=== PATIENT | female | born 1940 | race Caucasian/White ===

== ENCOUNTER 2017-05-16 06:32 | Day surgery (SDC) | payer MEDICARE, MEDICAID ==
[2017-05-12 12:41] LABS: Basophils # (auto) 0.1 uL; Basophils % (auto) 1.3 % (0.0-2.0); Eosinophils # (auto) 0.2 uL; Eosinophils % (auto) 3.5 % (0.0-7.0); Hematocrit 45.5 % (36.0-46.0); Hemoglobin 15.1 g/dL (12.2-16.2); Lymphocytes # (auto) 1.9 uL; Lymphocytes % (auto) 27.2 % (10.0-50.0); Mean Corpuscular Hemoglobin 28.7 pg (28.0-32.0); Mean Corpuscular Hgb Conc. 33.1 g/dL (32.0-36.0); Mean Corpuscular Volume 86.8 fL (80.0-100.0); Monocytes # (auto) 0.5 uL; Monocytes % (auto) 7.9 % (0.0-12.0); Neutrophils # (auto) 4.2 uL; Neutrophils % (auto) 60.1 % (37.0-80.0); Nucleated Red Blood Cells % 0.1 %; Platelet Count (auto) 255 10^3/uL (140-450); Red Blood Cells 5.24 10^6/uL (4.0-5.20); Red Cell Distribution Width 13.3 % (11.8-14.3)
[2017-05-12 12:52] LABS: INR 0.93 (0.9-1.15); Partial Thromboplastin Time 22.6 sec (22.64-33.71); Prothrombin Time 10.1 sec (9.37-12.3)
[2017-05-12 12:53] LABS: Albumin 3.8 g/dL (3.4-5.0); BUN/Creatinine Ratio 15.4; Calcium 9.3 mg/dL (8.5-10.1); Potassium 4.2 mmol/L (3.5-5.1)
[2017-05-12 12:55] LABS: Urine Bacteria MOD /hpf (None Seen); Urine Blood Negative /uL (Negative); Urine Mucus FEW (None Seen); Urine WBC 133 /hpf (0 - 5)
[2017-05-12 12:57] LABS: Bilirubin, Total 0.7 mg/dL (0.2-1.0); Total Protein 7.6 g/dL (6.4-8.2)
[~2017-05-16] VITALS: Ht 154.9 cm; Wt 73.0 kg
[~2017-05-16 06:32] MED LIST: ALBU2TAB4 PO; ALBUAER3 IN; GABA-339 PO; METF-370 PO; NITR400A5 TL; PAR20T PO; TRAM50TA2 PO
[2017-05-16] MEDS ORDERED: CLINDAMYCIN 600MG IV 50 ML IV ONE (06:51)
[2017-05-16] MEDS ORDERED: BACITRACIN INJ 50000 UNIT VIAL ONE (07:20)
[2017-05-16] MEDS ORDERED: ROPIVACAINE 0.5% (5MG/ML) 20ML AMPULE IJ ONE (07:56)
[2017-05-16] MEDS ORDERED: LIDOCAINE W/ EPINEPHRINE 2% INJ 20ML VIAL ONE (07:56)
[2017-05-16] MEDS ORDERED: MIDAZOLAM HCL 1MG/1ML-2 ML VIAL ONE ×2 (07:57→08:41)
[2017-05-16] MEDS ORDERED: BUPIVACAINE W/ EPINEPH 0.25% INJ 50ML MDV ONE (08:30)
[2017-05-16] MEDS ORDERED: fentaNYL CITRATE 100 MCG/2 ML VL ONE (08:41)
[2017-05-16] MEDS ORDERED: MEPERIDINE HCL (50 MG/ML) 1 ML VIAL ONE (08:41)
[2017-05-16] MEDS ORDERED: PROPOFOL 10 MG/ML 20 ML IV ONE (09:01)
[2017-05-16] MEDS ORDERED: DEXAMETHASONE SOD PHOS 10MG/1ML VIAL INJ ONE (09:01)
[2017-05-16] MEDS ORDERED: SUCCINYLCHOLINE CHLORIDE 20 MG/ML 10ML VIAL IV ONE (09:02)
[2017-05-16] MEDS ORDERED: LABETALOL HCL 5 MG/ML 4ML SYRINGE IV PRN (09:30)
[2017-05-16] MEDS ORDERED: ONDANSETRON HCL 4 MG/2 ML VIAL IV ONE (09:30)
[2017-05-16] MEDS ORDERED: ePHEDrine SULFATE 50 MG/ML AMP IV PRN (09:30)
[2017-05-16] MEDS ORDERED: fentaNYL CITRATE 100 MCG/2 ML VL IV ONE (10:00)
[2017-05-16] MEDS ORDERED: MORPHINE SULFATE 4 MG/ML SYR/VIAL IV ONE (10:00)
[2017-05-16 11:23] VITALS: BP 146/71
== END 2017-05-16 11:30 | disposition home or self-care (01) ==
LOC: SUR 06:32
PROVIDERS: ATTEND Orthopaedic Surgery
DX: M25.361 Other instability, right knee (principal); E66.1 Drug-induced obesity; Z68.35 Body mass index [BMI] 35.0-35.9, adult; Z87.891 Personal history of nicotine dependence; Z88.0 Allergy status to penicillin; Z88.6 Allergy status to analgesic agent; Z88.5 Allergy status to narcotic agent; J44.9 Chronic obstructive pulmonary disease, unspecified; N18.2 Chronic kidney disease, stage 2 (mild); I12.9 Hypertensive chronic kidney disease with stage 1 through stage 4 chronic kidney disease, or unspecified chronic kidney disease; E11.22 Type 2 diabetes mellitus with diabetic chronic kidney disease; I25.2 Old myocardial infarction; I63.9 Cerebral infarction, unspecified
CPT/HCPCS: 27422; 27427; 27430; 36415; 80053; 81001; 82962; 83036; 85025; 85610; 85730; C1713; J0330; J1100; J2175; J2250; J2704; J2795; J3010; J3490

== ENCOUNTER 2019-08-13 05:32 | Inpatient (IN) | payer OTHER, MEDICAID ==
[2019-08-13] VITALS (8 sets, daily range): BP systolic 100–133; BP diastolic 60–79
[~2019-08-13] VITALS: Ht 154.9 cm; Wt 72.0 kg
[~2019-08-13 05:32] MED LIST changes: -ALBU2TAB4 PO; -ALBUAER3 IN; -GABA-339 PO; -METF-370 PO; -NITR400A5 TL; -PAR20T PO
[2019-08-13] MEDS ORDERED: MORPHINE SULF(PF) 0.5MG/ML 10ML VIAL ONE (06:56)
[2019-08-13] MEDS ORDERED: KETAMINE HCL 10 ML ONE (06:57)
[2019-08-13] MEDS ORDERED: MIDAZOLAM HCL 1MG/1ML-2 ML VIAL ONE (06:57)
[2019-08-13] MEDS ORDERED: fentaNYL CITRATE 100 MCG/2 ML VL ONE (06:57)
[2019-08-13] MEDS ORDERED: GLYCOPYRROLATE 0.2 MG/ML 1ML VIAL ONE (06:59)
[2019-08-13] MEDS ORDERED: ONDANSETRON HCL 4 MG/2 ML VIAL ONE (06:59)
[2019-08-13] MEDS ORDERED: LIDOCAINE 2% (LOCAL ANESTH.) PF 5ml SDV ONE (06:59)
[2019-08-13] MEDS ORDERED: PROPOFOL 10 MG/ML 20 ML IV ONE (06:59)
[2019-08-13] MEDS ORDERED: BACITRACIN INJ 50000 UNIT VIAL ONE (07:06)
[2019-08-13] MEDS ORDERED: TETRACAINE 1% INJ 2 ML VIAL IJ ONE (07:08)
[2019-08-13] MEDS ORDERED: ceFAZolin 1GM/50ML 50 ML IV ONE (07:12)
[2019-08-13] MEDS ORDERED: BUPIVACAINE W/ EPINEPH 0.25% INJ 50ML MDV ONE (07:16)
[2019-08-13] MEDS ORDERED: BUPIVACAINE 0.25% INJ 50ML VIAL ONE (07:16)
[2019-08-13] MEDS ORDERED: DexAMETHasone SOD PHOS 10MG/1ML VIAL INJ IV ONE (07:19)
[2019-08-13] MEDS ORDERED: HYDROcodone-ACET 5/325MG TAB PO PRN (09:30)
[2019-08-13] MEDS ORDERED: ONDANSETRON HCL 4 MG/2 ML VIAL IV PRN ×2 (09:30)
[2019-08-13] MEDS ORDERED: HYDROmorphone HCL 2 MG/ML VL IV PRN (09:30)
[2019-08-13] MEDS ORDERED: NITROGLYCERIN 0.4 MG SL TAB SL PRN (09:30)
[2019-08-13] MEDS: LACTATED RINGER'S 1,000 ML IV SCH ×2 (17:48→20:59)
[2019-08-13] MEDS: DOCUSATE SOD 100 MG CAP PO SCH ×2 (17:49→21:00)
[2019-08-13] MEDS: ceFAZolin 1GM/50ML 50 ML IV SCH ×2 (17:49→20:59)
--- NOTE | 2019-08-13 19:15 | NUR ---
Opening Shift Note Assumed care of patient, awake and alert. No S/S of distress/SOB or pain. Instructed on POC and to call for assist PRN, will continue to monitor for changes Q1hr and PRN. Side rails up x2. Bed locked in lowest position. Call light within reach.
[2019-08-14] VITALS (8 sets, daily range): BP systolic 106–157; BP diastolic 46–103
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
[2019-08-14] MEDS: LACTATED RINGER'S 1,000 ML IV SCH (05:30)
[2019-08-14 06:15] LABS: Basophils # (auto) 0 10 ^3/uL (0-0.2); Basophils % (auto) 0.1 % (0.0-2.0); Eosinophils # (auto) 0 10 ^3/uL (0-0.8); Hematocrit 37.3 % (36.0-46.0); Hemoglobin 12.5 g/dL (12.2-16.2); Lymphocytes # (auto) 1.1 10 ^3/uL (0.4-5.4); Lymphocytes % (auto) 9.7 % (10.0-50.0); Mean Corpuscular Hemoglobin 28.9 pg (28.0-32.0); Mean Corpuscular Hgb Conc. 33.6 g/dL (32.0-36.0); Mean Corpuscular Volume 86.1 fL (80.0-100.0); Monocytes % (auto) 9.1 % (0.0-12.0); Neutrophils # (auto) 8.8 10 ^3/uL (1.6-8.6); Neutrophils % (auto) 81.1 % (37.0-80.0); Platelet Count (auto) 279 10^3/uL (140-450); Red Blood Cells 4.34 10^6/uL (4.0-5.20); Red Cell Distribution Width 13.9 % (11.8-14.3); White Blood Cell 10.9 10^3/uL (4.4-10.8)
[2019-08-14 06:43] LABS: Albumin 2.9 g/dL (3.4-5.0); BUN/Creatinine Ratio 13.8; Bilirubin, Total 0.8 mg/dL (0.2-1.0); Calcium 8.6 mg/dL (8.5-10.1); Total Protein 6.5 g/dL (6.4-8.2)
--- NOTE | 2019-08-14 06:50 | NUR ---
Dr. Okeefe at bedside.
--- NOTE | 2019-08-14 07:15 | NUR ---
Endorsed care to day shift RN. Per MD, discharge patient after social service and physical therapy.
--- NOTE | 2019-08-14 09:49 | NUR ---
PERKINS CATHETER REMOVED. 1,000 ML DRAINED.
[2019-08-14] MEDS: DOCUSATE SOD 100 MG CAP PO SCH (09:53)
[2019-08-14] MEDS ORDERED: RIVAROXABAN 10 MG TAB PO SCH (10:00)
--- NOTE | 2019-08-14 11:42 | NUR ---
PATIENT BEING DISCHARGED TO THE CARE OF HER DAUGHTER DOUG. SS CALLED THE PATIENT IN HER ROOM FOR COUNSELING. PATIENT INFORMED THEM SHE HAS A WALKER AND COMMODE AT HOME AND DOUG IS THE GOLF COACH. PRESCRIPTIONS GIVEN, EDUCATION MATERIALS PROVIDED ON FOLLOW UP, DIET ACTIVITY AND WHAT TO DO IN EVENTS OF SOB, CP OR WORSENING CONDITION. IV REMOVED, TIP INTACT. TELE BOX REMOVED AND RETURNED. PATIENT WAS ABLE TO VOID 100ML AFTER PERKINS REMOVAL. VS WITHIN NORMAL LIMITS. BROUGHT VIA WHEELCHAIR BY VALARIE.
--- NOTE | 2019-08-14 12:00 | NUR ---
assessment Patient is a 79 year old female who is alert and oriented. Prior to admission patient lived home with family and functioned with assistance. Per patient she will return home to her prior living arrangements post discharge and family will transport her home. Patient informed me she has a rollator, fww, and a cane for home use. Patient informed me her daughter Kobe is her caregiver. Patient has no safety issues regarding returning home on discharge. Patient may benefit from home health for PT on discharge. I informed patient she has a right to speak to a social service technician regarding all care. I informed patient she has a right to participate in any and all discharge planning. Patient has a POA and advanced directive. Patient verbalized understanding and agreed to discharge plan. Addendum: 08/14/19 at 1618 by Didi ROGER Amended: Links added.
== END 2019-08-14 12:00 | disposition home or self-care (01) | DRG 468 ==
LOC: OVERFLOW 05:32 → EDSTATUS 07:00 → TELE-EAST 16:13
PROVIDERS: ADMIT Orthopaedic Surgery; ATTEND Orthopaedic Surgery
PROC: 0SBC0ZZ Excision of Right Knee Joint, Open Approach (ICD-10-PCS; 2019-08-13)
PROC: 0SRV0JZ Replacement of Right Knee Joint, Tibial Surface with Synthetic Substitute, Open Approach (ICD-10-PCS; 2019-08-13)
PROC: 0SPV0JZ Removal of Synthetic Substitute from Right Knee Joint, Tibial Surface, Open Approach (ICD-10-PCS; principal; 2019-08-13 07:19)
DX: M65.88 Other synovitis and tenosynovitis, other site (principal); Z96.651 Presence of right artificial knee joint
CPT/HCPCS: 36415; 80053; 82962; 85025; 86850; 86900; 86901; G0378; J0690; J1100; J2001; J2250; J2405; J2704; J3490